=== PATIENT | female | born 1950 | race Caucasian/White ===

== ENCOUNTER 2019-08-24 20:01 | Inpatient (IN) | payer MEDICARE, OTHER ==
[~2019-08-24] VITALS: Ht 160 cm; Wt 92.1 kg
--- NOTE | 2019-08-24 20:15 | NUR ---
PT PRESENTED TO THE ER WITH A C/O SOB, COUGH WITH CONGESTION, AND ABD PAIN. PT HAS HX OF COPD AND DIVERTICULITIS. PT AMBULATED TO ER #3 WITH A STEADY GAIT. PT WAS PLACED ON THE MONITOR AND CONTINUOUS PULSE OX. PT'S RESP ARE EVEN AND SHALLOW. PT IS SATURATING AT 89% ON RA. PT WAS PLACED ON 2L O2 VIA NC.
--- NOTE | 2019-08-24 20:20 | NUR ---
DR MAO IS AT THE BEDSIDE.
[2019-08-24] MEDS ORDERED: Magnesium 1GM/D5W 100ML PREMIX 200 ML IV ONE ×2 (20:24→20:34)
[2019-08-24] MEDS ORDERED: ALBUTEROL FS 2.5 MG/3 ML VIAL.NEB CONTNEB ONE (20:30)
[2019-08-24] MEDS ORDERED: IPRATROPIUM NEB FS 0.5 MG/2.5 ML AMPUL.NEB NEB ONE (20:30)
[2019-08-24] MEDS ORDERED: methylPREDNISolone SOD SUCC 125 MG/2ML VIAL IV ONE (20:30)
[2019-08-24] MEDS ORDERED: methylPREDNISolone SOD SUCC 125 MG/2ML VIAL ONE (20:34)
[2019-08-24 20:43] LABS: BASOPHILS # (AUTO) 0.1 /CMM (0.0-0.2); BASOPHILS % (AUTO) 1.2 % (0.0-2.0); EOSINOPHILS % (AUTO) 7.7 % (0.0-6.0); HEMATOCRIT 43 % (33-45); HEMOGLOBIN 14.2 g/dL (11.5-14.8); LYMPHOCYTES # (AUTO) 1.9 /CMM (0.8-4.8); LYMPHOCYTES % (AUTO) 23.4 % (20.0-44.0); MEAN CORPUSCULAR HGB CONC 33 g/dl (31.0-36.0); MEAN CORPUSCULAR VOLUME 88 fL (82-100); MONOCYTES # (AUTO) 0.7 /CMM (0.1-1.30); MONOCYTES % (AUTO) 8.1 % (2.0-12.0); NEUTROPHILS # (AUTO) 4.8 /CMM (1.8-8.9); NEUTROPHILS % (AUTO) 59.6 % (43.0-81.0); PLATELET COUNT (AUTO) 360 /CMM (150-450); RED BLOOD CELL COUNT(AUTO) 4.81 MIL/uL (4.0-5.2)
[2019-08-24] MEDS ORDERED: ALBUTEROL FS 2.5 MG/3 ML VIAL.NEB ONE (20:43)
[2019-08-24] MEDS ORDERED: IPRATROPIUM NEB FS 0.5 MG/2.5 ML AMPUL.NEB ONE (20:43)
[2019-08-24 20:56] LABS: ALBUMIN 3.9 g/dL (3.4-5.0); BILIRUBIN,TOTAL 0.2 mg/dL (0.2-1.0); CREATININE 0.7 mg/dL (0.6-1.3); POTASSIUM 3.5 mmol/L (3.5-5.1); TOTAL PROTEIN, SERUM 7.1 g/dL (6.4-8.2)
[2019-08-24] MEDS ORDERED: KETOROLAC TROMETHAMINE INJ 30 MG/ML VIAL IV ONE (21:30)
[2019-08-24] MEDS ORDERED: KETOROLAC TROMETHAMINE 15 MG/ML VIAL ONE (21:34)
--- NOTE | 2019-08-24 21:50 | NUR ---
DR MAO IS AT THE BEDSIDE SPEAKING TO THE PT
--- NOTE | 2019-08-24 22:05 | NUR ---
PT IS SITTING IN HIGH FOWLERS. PT'S RESP ARE AT 24. PT IS ON 2L O2 VIA NC AND SATURATING AT 96%.
--- NOTE | 2019-08-24 22:38 | NUR ---
RECIEVED BED 313-2
--- NOTE | 2019-08-24 22:46 | NUR ---
CALLING REPORT TO LAKISHA RICHARDS
[2019-08-24 23:00] VITALS: BP 144/64
[2019-08-24] MEDS ORDERED: Z GUARD REMEDY 2 OZ OINT TP PRN (23:00)
[2019-08-24] MEDS ORDERED: ZOLPIDEM TARTRATE 5 MG TABLET PO PRN (23:00)
[2019-08-24] MEDS ORDERED: ONDANSETRON HCL/PF 4 MG/2 ML VIAL IVP PRN (23:00)
[2019-08-24] MEDS ORDERED: MAG HYDROX/AL HYDROX/SIMETH 30 ML UDC PO PRN (23:00)
[2019-08-24] MEDS ORDERED: ACETAMINOPHEN 325 MG TABLET PO PRN (23:00)
[2019-08-24] MEDS ORDERED: MAGNESIUM HYDROXIDE 30 ML UDC PO PRN (23:00)
--- NOTE | 2019-08-24 23:00 | NUR ---
ADMISSION NOTE REPORT RECIEVED EARLIER FROM JARRETT. PATIENT BEING ADMITT[facility] UNDER DR. MEMBRENO. FOR COPD EXAC. NEW ORDERS RECIEVED. PATIENT AX0X3 BREATHING IS EVEN AND UNLABORED ON 2LNC WITH SATARTION OF 96%. PT CAME TO ER FOR SOB AND ALSO HAD ABD PAIN/SPASMS. PATIENT STILL REPORTS HAVING PAIN DISCOMFORT TO ABD EXACERBATED BY BREATHING RATED 8/10. ADMISSION ASSESSMENT PERFORMED. PATIENT ORIENTED TO ROOM. BED DOWN LOCKED IN HIGH FOWLERS POSITION SRX2 VERBALIZED UNDERSTANDING OT USE CALL LIGHT WHEN GETTING IN AND OUT OF BED. PATIENT DENIES RECENTLY FALLING WITHIN THE PAST YEAR.
[2019-08-24] MEDS ORDERED: HYOS0.1273 PO (23:47)
[2019-08-24] MEDS ORDERED: ALBU0.633 NEB (23:47)
[2019-08-24] MEDS ORDERED: PANT40TA4 PO (23:47)
[2019-08-24] MEDS ORDERED: UMEC1BLS IH (23:47)
[2019-08-24] MEDS ORDERED: ALBU6.7H9 IH (23:47)
[2019-08-25] MEDS ORDERED: LEVOFLOXACIN 750 MG /D5W 150ML 150 ML IV ONE (00:21)
[2019-08-25] MEDS: LEVOFLOXACIN 750 MG /D5W 150ML 750 MG in PREMIX 1 EA IV SCH ×2 (00:46→22:54)
[2019-08-25] MEDS: methylPREDNISolone SOD SUCC 40 MG/ML VIAL IV SCH ×5 (00:52→23:00)
[2019-08-25] MEDS: ENOXAPARIN SODIUM 40 MG/0.4 ML DISP.SYRIN SQ SCH ×2 (00:52→22:59)
[2019-08-25] MEDS: ALBUTEROL FS 2.5 MG/0.5 ML VIAL.NEB NEB PRN ×3 (01:18→22:59)
[2019-08-25] MEDS: IPRATROPIUM NEB FS 0.5 MG/2.5 ML AMPUL.NEB NEB PRN ×3 (01:18→22:59)
[2019-08-25 04:59] VITALS: BP 144/64
--- NOTE | 2019-08-25 06:50 | NUR ---
RN PM CLOSING NOTE PT SITTING AT BEDSIDE PLAYHING GAME ON PHONE. DENIES SOB. STILL ON 2LNC BREATHING EVEN AND UNLABORED. CALL LIGHT WITHIN REACH. PT DENIES DIZZINESS OR SOB. VERBALIZES UNDERSTANDING TO CALL FOR ASSISTANCE NEEDED WHEN GETTING OOB TO GO TO BR.
[2019-08-25 07:27] LABS: CALCIUM, SERUM 8.5 mg/dL (8.5-10.1); CREATININE 0.7 mg/dL (0.6-1.3); MAGNESIUM 2.2 mg/dL (1.8-2.4)
[2019-08-25 07:40] LABS: BASOPHILS % (AUTO) 0.2 % (0.0-2.0); EOSINOPHILS % (AUTO) 0.1 % (0.0-6.0); HEMATOCRIT 43 % (33-45); HEMOGLOBIN 14.2 g/dL (11.5-14.8); LYMPHOCYTES # (AUTO) 0.4 /CMM (0.8-4.8); LYMPHOCYTES % (AUTO) 6.3 % (20.0-44.0); MEAN CORPUSCULAR HGB CONC 33 g/dl (31.0-36.0); MEAN CORPUSCULAR VOLUME 89 fL (82-100); MONOCYTES # (AUTO) 0.1 /CMM (0.1-1.30); NEUTROPHILS # (AUTO) 5.6 /CMM (1.8-8.9); NEUTROPHILS % (AUTO) 92.4 % (43.0-81.0); PLATELET COUNT (AUTO) 343 /CMM (150-450); RED BLOOD CELL COUNT(AUTO) 4.82 MIL/uL (4.0-5.2)
[2019-08-25 07:45] LABS: THYROID STIMULATING HORMONE 0.586 uIU/mL (0.358-3.74)
[2019-08-25 08:00] VITALS: BP 155/79
--- NOTE | 2019-08-25 08:13 | NUR ---
RN NOTES RECEIVED PATIENT RESTING IN BED COMFORTABLY AT THIS TIME. SHE IS AOX4, VERBAL, AND AMBULATORY. SHE IS ON 2L OF OXYGEN VIA NC, TOLERATING WELL, NO S/SX OF RESP DISTRESS OR SOB. CHEST RISES AND FALLS EVENLY. SKIN IS INTACT, NO WOUNDS PRESENT. SHE IS ON A REGULAR DIET, TOLERATING WELL. 20G IV ON RAC IS PATENT AND INTACT. SAFETY MEASURES HAVE BEEN IMPLEMENTED, CALL LIGHT IS WITHIN REACH, BED IS IN LOWEST AND LOCKED POSITION, SIDE RAILS UP X2, WILL CONTINUE TO MONITOR FOR ANY CHANGES.
[2019-08-25] MEDS: HYDROCODONE/APAP 5/325MG 1 EACH TABLET PO PRN ×2 (11:16→17:26)
[2019-08-25] MEDS ORDERED: K PHOS NEUTRAL 250 MG TABLET PO ONE (12:00)
[2019-08-25] MEDS: ACETYLCYSTEINE 20% ORAL SOLN 6,000 MG/30 ML VIAL PO SCH ×2 (15:30→21:03)
[2019-08-25 16:00] VITALS: BP 125/63
[2019-08-25] MEDS ORDERED: DEXAMETHASONE SOD PHOSPHATE 10 MG/ML VIAL IV PRN (17:30)
[2019-08-25] MEDS ORDERED: diphenhydrAMINE HCL 50 MG/ML VIAL IV PRN (17:30)
--- NOTE | 2019-08-25 18:59 | NUR ---
RN CLOSING NOTES PATIENT IS RESTING COMFORTABLY IN BED. NO S/SX OF RESP DISTRESS OR SOB PRESENT AT THIS TIME. PT IS TO HAVE CT SCAN WITH CONTRAST LATER TODAY. NO ACUTE CHANGES OCCURRED THROUGHOUT THE SHIFT, VITAL SIGNS ARE STABLE, PT NEEDS HAVE BEEN MET. SAFETY MEASURES HAVE BEEN IMPLEMENTED, CALL LIGHT IS WITHIN REACH, SIDE RAILS UP X2, PT WILL BE ENDORSED TO NIGHTSHIFT RN FOR CONTINUITY OF CARE.
[2019-08-25 20:00] VITALS: BP 132/50
--- NOTE | 2019-08-25 20:00 | NUR ---
MS RN NOTES RECEIVED PATIENT AWAKE IN BED WITH NO DISTRESS NOTED. CALL LIGHT WITHIN REACH. PERIPHERAL LINE INTACT AND PATENT. NO C/O PAIN OR DISCOMFORT. BED IN LOW LOCK SETTING. ROOM FREE OF CLUTTER AND ALL BELONGINGS KEPT NEAR BEDSIDE. WILL CONTINUE TO MONITOR.
[2019-08-25] MEDS ORDERED: IOHEXOL-300 100 ML VIAL IV ONE (20:18)
[2019-08-25] MEDS ORDERED: CT SWABBABLE VALVE TRANS SET 1 EA INFUS.SET MC ONE (20:18)
[2019-08-25] MEDS ORDERED: IV NS 0.9% 250 ML IV ONE (20:19)
--- NOTE | 2019-08-25 20:20 | NUR ---
PATIENT TAKEN FOR CT VIA WC IN STABLE CONDITION
--- NOTE | 2019-08-25 20:43 | NUR ---
PATIENT BACK FROM CT IN STABLE CONDITION. NO DISTRESS OR ASE FROM CONTRAST NOTED. WILL CONTINUE TO MONITOR.
[2019-08-26] MEDS: HYDROCODONE/APAP 5/325MG 1 EACH TABLET PO PRN ×2 (04:27→13:24)
[2019-08-26] MEDS: methylPREDNISolone SOD SUCC 40 MG/ML VIAL IV SCH ×2 (05:14→12:17)
--- NOTE | 2019-08-26 07:02 | NUR ---
MS RN NOTES PATIENT ASLEEP IN BED WITH NO DISTRESS NOTED. CALL LIGHT WITHIN REACH. ALL DUE MEDS GIVEN ORDERED WITH NO ASE. NO FURTHER C/O PAIN OR DISCOMFORT. PERIPHERAL LINE INTACT AND PATENT. BED IN LOW LOCK SETTING. ROOM FREE OF CLUTTER AND BELONGINGS KEPT NEAR BEDSIDE. WILL ENDORSE TO ONCOMING SHIFT.
[2019-08-26 07:30] LABS: ALANINE AMINOTRANSFERASE 22 U/L (12-78); ALBUMIN 3.5 g/dL (3.4-5.0); ALKALINE PHOSPHATASE 67 U/L (46-116); ASPARTATE AMINOTRANSFERASE 10 U/L (15-37); BILIRUBIN,TOTAL 0.1 mg/dL (0.2-1.0); CALCIUM, SERUM 8.6 mg/dL (8.5-10.1); CARBON DIOXIDE 24 mmol/L (21-32); CHLORIDE 103 mmol/L (98-107); CREATININE 0.9 mg/dL (0.6-1.3); GLUCOSE 200 mg/dL (74-106); MAGNESIUM 2.1 mg/dL (1.8-2.4); POTASSIUM 3.6 mmol/L (3.5-5.1); SODIUM SERUM 141 mmol/L (136-145); TOTAL PROTEIN, SERUM 6.7 g/dL (6.4-8.2); UREA NITROGEN, BLOOD 14 mg/dL (7-18)
[2019-08-26 08:00] VITALS: BP 116/60
[2019-08-26] MEDS: ACETYLCYSTEINE 20% ORAL SOLN 6,000 MG/30 ML VIAL PO SCH (08:05)
[2019-08-26] MEDS: ALBUTEROL FS 2.5 MG/0.5 ML VIAL.NEB NEB PRN (08:05)
--- NOTE | 2019-08-26 09:46 | NUR ---
MS/RN OPENING NOTES RECEIVED PATIENT RESTING IN BED COMFORTABLY AT THIS TIME. SHE IS AOX4, VERBAL, AND AMBULATORY. SHE IS ON 2L OF OXYGEN VIA NC, TOLERATING WELL, NO S/SX OF RESP DISTRESS OR SOB. CHEST RISES AND FALLS EVENLY. SKIN IS INTACT, NO WOUNDS PRESENT. SHE IS ON A REGULAR DIET, TOLERATING WELL. 20G IV ON RAC IS PATENT AND INTACT. SAFETY MEASURES HAVE BEEN IMPLEMENTED, CALL LIGHT IS WITHIN REACH, BED IS IN LOWEST AND LOCKED POSITION, SIDE RAILS UP X2, DUE MORNING MEDS WAS GIVEN, WILL CONTINUE TO MONITOR FOR ANY CHANGES.
[2019-08-26] MEDS ORDERED: HYDR-3972 PO (14:54)
[2019-08-26] MEDS ORDERED: METH4TAB3 PO (14:54)
[2019-08-26] MEDS ORDERED: LEVO750T21 PO (14:54)
[2019-08-26 15:48] VITALS: BP 146/60
--- NOTE | 2019-08-26 16:18 | NUR ---
MS/RN NOTES PATIENT WAS DISCHARGED WITH STABLE CONDITION, DENIES ANY PAIN, NO SHORTNESS NOTED. PATIENT INSTRUCTED WITH THE NEW PRESCRIPTION GIVEN AND COPY SAVE IN THE CHART, EDUCATIONAL READING MATERIALS WAS GIVEN. EXPLAINED AND VERBALLY UNDERSTAND THE INSTRUCTION. INSTRUCTED THAT SHE NEED TO FOLLOW UP WITH HER PRIMARY DOCTOR WITH IN 1 WEEK. IV LINE WAS REMOVED PRIOR TO DISCHARGED, ACCOMPANIED BY MARISOL THE DAUGHTER IN LAW WITH PRIVATE CAR.
== END 2019-08-26 15:50 | disposition home or self-care (01) | DRG 191 ==
LOC: ER 20:05 → MED 22:48
PROVIDERS: ATTEND Hospitalist
DX: J44.1 Chronic obstructive pulmonary disease with (acute) exacerbation (principal); K57.92 Diverticulitis of intestine, part unspecified, without perforation or abscess without bleeding; E66.9 Obesity, unspecified; Z68.36 Body mass index [BMI] 36.0-36.9, adult; E83.39 Other disorders of phosphorus metabolism; I70.0 Atherosclerosis of aorta; Z88.5 Allergy status to narcotic agent; Z88.0 Allergy status to penicillin; Z91.041 Radiographic dye allergy status; Z72.0 Tobacco use
CPT/HCPCS: 36415; 71045-TC; 71250-TC; 71260-TC; 80048-TC; 80053-TC; 80061-TC; 80076-TC; 83735-TC; 84100-TC; 84443-TC; 85025-TC; 87081-TC; 94799-TC; 97116-TC; 97530-TC; A4216; G0378; J1100; J1200; J1650; J1885; J1956; J2920; J2930; J3475; J7030; J7050; Q9967